=== PATIENT | male | born 1985 | race Caucasian/White ===

== ENCOUNTER 2019-02-23 05:30 | Emergency (ER) | payer MEDICAID ==
[~2019-02-23] VITALS: Ht 170.2 cm; Wt 83.9 kg
[2019-02-23 05:35] VITALS: Ht 170.2 cm; Wt 83.9 kg
[2019-02-23 08:50] VITALS: BP 118/61
== END 2019-02-23 08:11 | disposition home or self-care (01) ==
LOC: ED 05:30
DX: L02.612 Cutaneous abscess of left foot (principal); J45.909 Unspecified asthma, uncomplicated; Z86.19 Personal history of other infectious and parasitic diseases
CPT/HCPCS: J0690; J2001; J3010; J3490